=== PATIENT | male | born 1990 | race Caucasian/White ===

== ENCOUNTER 2025-05-31 07:26 | Outpatient (CLI) | payer OTHER, SELFPAY ==
--- NOTE | 2025-05-31 08:00 | CRLHL7_ITS ---
For Patients: As a result of the Century Cures Act, medical imaging exams and procedure reports are released immediately into your electronic medical record. You may view this report before your referring provider. If you have questions, please contact your health care provider. Indication: Localized swelling, possible cyst. Technique: Noncontrast followed by contrast-enhanced CT of the head with multiplanar reconstruction utilizing bone and soft tissue algorithms. 111 cc Isovue 370 iodinated intravenous contrast was utilized. Comparison: None available. Findings: No acute intracranial hemorrhage. Stringer-white matter differentiation is preserved. No focus of abnormal enhancement is identified. The ventricles are normal in size. No abnormal extra-axial fluid collection is identified. Crescentic soft tissue density leaving overlying the midline frontal calvarium measuring approximately 20 mm (series 10, image 17). Cortical thickening within the underlying frontal bone with remodeling of the cortex underlying the soft tissue lesion (series 9, image 44). Impression: 1. 20 mm soft tissue density overlying the midline frontal calvarium with remodeling of the underlying cortex. Contrast-enhanced MRI may provide further characterization and the lesion is likely amenable to ultrasound-guided biopsy. 2. No acute intracranial abnormality or focus of abnormal intracranial enhancement. Please note that all CT scans at this facility use dose modulation, iterative reconstruction, and/or weight-based dosing when appropriate to reduce radiation dose to as low as reasonably achievable. Dictated by Madhu Ren MD @ 05/31/2025 11:36:59 AM (Electronically Signed)
== END 2025-05-31 07:27 | disposition home or self-care (01) ==
PROVIDERS: PCP Family Medicine; Visit Provider Surgery
DX: R22.0 Localized swelling, mass and lump, head (principal)
CPT/HCPCS: 70470; Q9967